=== PATIENT | male | born 1990 | race American Indian/Alaskan Native ===

== ENCOUNTER 2018-09-25 00:06 | Emergency (ER) | payer SELFPAY ==
[2018-09-25 00:52] LABS: Basophils # (Auto) 0.1 K/mm3 (0.0-0.1); Basophils % (Auto) 0.6 % (0.0-1.8); Eosinophils # (Auto) 0.4 K/mm3 (0.0-0.4); Eosinophils % (Auto) 5.3 % (0.0-4.3); Hematocrit 47.4 % (35.5-45.6); Hemoglobin 15.8 gm/dl (11.8-15.2); Lymphocytes # (Auto) 3.2 K/mm3 (1.2-5.4); Lymphocytes % (Auto) 39.4 % (13.4-35.0); Mean Corpuscular HGB Conc 33 % (32-34); Mean Corpuscular Volume 86 fl (84-94); Monocytes # (Auto) 0.8 K/mm3 (0.0-0.8); Monocytes % (Auto) 9.3 % (0.0-7.3); Platelet Count 124 K/mm3 (140-440); Red Blood Count 5.52 M/mm3 (3.65-5.03); Red Cell Distribution Width 13.7 % (13.2-15.2)
[2018-09-25 01:10] LABS: BUN/Creatinine Ratio 15; Blood Urea Nitrogen 15 mg/dL (9-20); Calcium 9.1 mg/dL (8.4-10.2); Hemolysis Index 29
[2018-09-25] MEDS ORDERED: NACL 0.9% 1000 ML 1,000 ML IV ONE (02:24)
--- NOTE | 2018-09-25 02:51 | XRay Report ---
CHEST 2 VIEWS INDICATION: chest pain. Pain and shortness of breath for the past year which has worsened in the past day COMPARISON: Chest x-ray from 11/10/2015 FINDINGS: Support devices: None. Heart: Within normal limits. Lungs/pleura: No acute air space or interstitial disease. No pneumothorax. Additional findings: None. IMPRESSION: 1. No acute findings. Signer Name: Casimiro Maldonado MD Signed: 09/25/2018 2:47 AM Workstation Name: [id number]
--- NOTE | 2018-09-25 04:06 | Emergency Department Report ---
ED General Adult HPI - General Chief complaint: Dizziness Stated complaint: DIZZINESS/FEELING FAINT Time Seen by Provider: 09/25/18 01:35 Source: patient Mode of arrival: Ambulatory Limitations: No Limitations - History of Present Illness Initial comments: Patient is a 27-year-old male with no past medical history who presents with a ED with complaint of acute onset persistent intermittent headache, chest wall pain, lightheadedness for 2 days with one episode of near-syncope 8 hours ago. Patient denies shortness of breath, diaphoresis, change in vision, syncope, seizures, fever, chills, cough, abdominal pain, nausea and vomiting or numbness and tingling of upper and lower extremities bilaterally. 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 Patient also states that he is on avid athlete and works out every day at the gymnasium to keep fit. MD Complaint: Chest wall pain, lightheadedness -: Sudden, days(s) (2) Location: head, chest Radiation: non-radiation Severity scale (0 -10): 3 Quality: aching, dull Consistency: constant Improves with: none Worsens with: movement, other (heavy lifting) Associated Symptoms: denies other symptoms, chest pain, headaches. denies: con fusion, cough, diaphoresis, fever/chills, loss of appetite, malaise, nausea/vomiting, rash, seizure, shortness of breath, syncope, weakness Treatments Prior to Arrival: none - Related Data Previous Rx's Medication Instructions Recorded Last Taken Type Ibuprofen [Motrin] 800 mg PO Q8HR PRN #20 tablet 11/10/15 Unknown Rx Cyclobenzaprine [Flexeril] 10 mg PO TID PRN #15 tablet 09/25/18 Unknown Rx Naproxen [EC-Naproxen] 500 mg PO Q12H PRN #20 tablet. 09/25/18 Unknown Rx Allergies Allergy/AdvReac Type Severity Reaction Status Date / Time No Known Allergies Allergy Verified 11/09/15 20:45 ED Review of Systems ROS: Stated complaint: DIZZINESS/FEELING FAINT Other details as noted in HPI Constitutional: denies: chills, fever Eyes: denies: eye pain, eye discharge, vision change ENT: denies: ear pain, throat pain Respiratory: denies: cough, shortness of breath, wheezing Cardiovascular: chest pain. denies: palpitations, syncope, paroxysmal nocturnal dyspnea Endocrine: no symptoms reported Gastrointestinal: denies: abdominal pain, nausea, vomiting, diarrhea, con stipation, hematemesis Genitourinary: denies: urgency, dysuria Musculoskeletal: arthralgia, myalgia. denies: back pain, joint swelling Skin: denies: rash, lesions Neurological: headache, other (lightheadedness). denies: weakness, paresthesias Psychiatric: denies: anxiety, depression Hematological/Lymphatic: denies: easy bleeding, easy bruising ED Past Medical Hx - Past Medical History Previous Medical History?: No - Surgical History Past Surgical History?: No - Social History Smoking Status: Unknown if ever smoked Substance Use Type: Marijuana - Medications Home Medications: Home Medications Medication Instructions Recorded Confirmed Last Taken Type Ibuprofen [Motrin] 800 mg PO Q8HR PRN #20 tablet 11/10/15 Unknown Rx Cyclobenzaprine [Flexeril] 10 mg PO TID PRN #15 tablet 09/25/18 Unknown Rx Naproxen [EC-Naproxen] 500 mg PO Q12H PRN #20 tablet. 09/25/18 Unknown Rx ED Physical Exam - General Limitations: No Limitations General appearance: alert, in no apparent distress - Head Head exam: Present: atraumatic, normocephalic, normal inspection - Eye Eye exam: Present: normal appearance, PERRL, EOMI - ENT ENT exam: Present: normal exam, normal orophraynx, mucous membranes moist, TM's normal bilaterally, normal external ear exam - Neck Neck exam: Present: normal inspection, full ROM. Absent: tenderness - Respiratory Respiratory exam: Present: normal lung sounds bilaterally, chest wall tenderness (palpable diffuse chest wall tenderness). Absent: respiratory distress, wheezes, rales, rhonchi, accessory muscle use, decreased breath sounds, prolonged expiratory - Cardiovascular Cardiovascular Exam: Present: normal rhythm, bradycardia, normal heart sounds. Absent: systolic murmur, diastolic murmur, rubs, gallop - GI/Abdominal GI/Abdominal exam: Present: soft, normal bowel sounds. Absent: tenderness, guarding, rebound, hyperactive bowel sounds, organomegaly, bruit - Rectal Rectal exam: Present: deferred - Extremities Exam Extremities exam: Present: normal inspection, full ROM, normal capillary refill. Absent: tenderness, pedal edema, joint swelling - Back Exam Back exam: Present: normal inspection, full ROM. Absent: tenderness, CVA tenderness (R), CVA tenderness (L), muscle spasm, paraspinal tenderness, vertebral tenderness - Neurological Exam Neurological exam: Present: alert, oriented X3, CN II-XII intact, normal gait, reflexes normal - Psychiatric Psychiatric exam: Present: normal affect, normal mood - Skin Skin exam: Present: warm, dry, intact, normal color. Absent: rash ED Course Vital Signs 09/25/18 00:23 Temperature 97.7 F Pulse Rate 40 L Blood Pressure 115/71 - Reevaluation(s) Reevaluation #1: 09/25/18 04:07 This is a 27-year-old male with no past medical history presents to ED with lightheadedness, generalized weakness and chest wall pain for 2 days. In the ED, patient is alert and oriented 3 and is not in distress. Lab test results were reviewed and are all unremarkable. EKG shows sinus bradycardia with a ventricular rate of [address] or T-wave abnormalities. The sinus bradycardia is consistent with the patient's physical activity which consist of daily workout and heavy lifting at work. Chest x-ray shows no acute cardiopulmonary abnormalities. Patient was treated in the ED with normal saline 1 L IV bolus x 1. On reevaluation, patient resting comfortably and appears to be in no distress, sleeping in the room. Patient was discharged home on medications including anti-inflammatory pain medications and muscle relaxants and advised follow-up with his primary care physician in 5-7 days for reevaluation. Patient was also advised to return to the ED immediately if symptoms get worse. ED Medical Decision Making - Lab Data Result diagrams: 09/25/18 00:32 09/25/18 00:32 - EKG Data EKG shows normal: sinus rhythm Rate: bradycardia - EKG Data 09/25/18 04:12 Sinus bradycardia, 40 bpm, no ST or T-wave abnormalities. - Radiology Data Radiology results: report reviewed, image reviewed Chest x-ray shows no acute cardiopulmonary abnormalities. - Medical Decision Making This is a 27-year-old male with no past medical history presents to ED with lightheadedness, generalized weakness and chest wall pain for 2 days. In the ED, patient is alert and oriented 3 and is not in distress. Lab test results were reviewed and are all unremarkable. EKG shows sinus bradycardia with a ventricular rate of [address] or T-wave abnormalities. The sinus bradycardia is consistent with the patient's physical activity which consist of daily workout and heavy lifting at work. Chest x-ray shows no acute cardiopulmonary abnormalities. Patient was treated in the ED with normal saline 1 L IV bolus x 1. On reevaluation, patient resting comfortably and appears to be in no distress, sleeping in the room. Patient was discharged home on medications including anti-inflammatory pain medications and muscle relaxants and advised follow-up with his primary care physician in 5-7 days for reevaluation. Patient was also advised to return to the ED immediately if symptoms get worse. - Differential Diagnosis chest wall pain; muscle strain of chest wall; lightheadedness Critical care attestation.: If time is entered above; I have spent that time in minutes in the direct care of this critically ill patient, excluding procedure time. ED Disposition Clinical Impression: Acute chest wall pain, Muscle strain of anterior chest wall Disposition: DC-01 TO HOME OR SELFCARE Is pt being admited?: No Does the pt Need Aspirin: No Condition: Stable Instructions: Chest Pain (ED), Muscle Strain (ED) Additional Instructions: Take medications with food, drink plenty of fluids and follow-up with your primary care physician in 7-10 days for reevaluation. Return to the ED immediately if symptoms get worse. Prescriptions: Naproxen [EC-Naproxen] 500 mg PO Q12H PRN #20 tablet.dr SALMONN Reason: Pain , Severe (7-10) Cyclobenzaprine [Flexeril] 10 mg PO TID PRN #15 tablet PRN Reason: Muscle Spasm Referrals: [facility] [Outside] - 3-5 Days Forms: Work/School Release Form(ED) Time of Disposition: 04:13 Print Language: FAROESE
[2018-09-25 05:28] VITALS: BP 116/67
[2018-09-25 05:52] LABS: Amphetamine Screen,Urine PRESUMPTIVE NEGATIVE; Benzodiazepines Screen,Urine PRESUMPTIVE NEGATIVE; Cocaine Screen,Urine PRESUMPTIVE NEGATIVE; Methadone Screen,Urine PRESUMPTIVE NEGATIVE; Opiate Screen,Urine PRESUMPTIVE NEGATIVE
[2018-09-25 06:05] LABS: Bilirubin,Urine NEG (Negative); Blood,Urine NEG (Negative); Color,Urine Yellow (Yellow); Mucus,Urine FEW /HPF; Protein,Urine <15 mg/dL mg/dL (Negative); Urobilinogen,Urine < 2.0 mg/dL (<2.0)
[2018-09-25 06:21] LABS: Cannabinoid Screen,Urine PRESUMPTIVE POSITIVE
== END 2018-09-25 05:31 | disposition home or self-care (01) ==
LOC: ED 00:06
DX: S29.011A Strain of muscle and tendon of front wall of thorax, initial encounter (principal); F12.10 Cannabis abuse, uncomplicated; Z79.1 Long term (current) use of non-steroidal anti-inflammatories (NSAID); Z79.899 Other long term (current) drug therapy; X50.0XXA Overexertion from strenuous movement or load, initial encounter; Y93.89 Activity, other specified; Y92.69 Other specified industrial and construction area as the place of occurrence of the external cause; Y99.8 Other external cause status
CPT/HCPCS: 36415; 71046; 80048; 80307; 81001; 82550; 84484; 85025; 93005; 93010; 96360; 99284; J7030